=== PATIENT | male | born 1980 | race African-American/Black ===

== ENCOUNTER 2019-10-25 06:02 | Emergency (ER) | payer SELFPAY ==
[2019-10-25] MEDS ORDERED: predniSONE 20 MG TAB ONE (06:14)
== END 2019-10-25 07:45 | disposition home or self-care (01) ==
LOC: ERS 06:02
DX: B34.9 Viral infection, unspecified (principal); J45.901 Unspecified asthma with (acute) exacerbation; I10 Essential (primary) hypertension
CPT/HCPCS: 87804; 94640; J7512; J7620